=== PATIENT | male | born 1985 | race Caucasian/White ===

== ENCOUNTER 2017-09-12 17:33 | Emergency (ER) | payer OTHER ==
[~2017-09-12] VITALS: Ht 195.6 cm; Wt 145.0 kg
[2017-09-12 17:41] VITALS: PULSE 109; RESP 18; TEMP 97.6; O2SAT 95
[2017-09-12] MEDS ORDERED: PRAZ2CAP PO (17:52)
[2017-09-12] MEDS ORDERED: HYDR-3516 PO (17:52)
[2017-09-12] MEDS ORDERED: ZOFR4TAB PO (17:52)
[2017-09-12] MEDS ORDERED: CLON1TAB PO (17:52)
[2017-09-12] MEDS ORDERED: SODIUM CHLOR 0.9% 1000 ML INJ 1,000 ML IV ONE ×2 (18:01→19:15)
--- NOTE | 2017-09-12 18:14 | PD ---
HPI Chief Complaint: GI Complaint Time Seen by Provider: 17:48 Travel History International Travel<30 days: No Contact w/Intl Traveler<30days: No Traveled to known affect area: No History of Present Illness HPI Patient is a 32-year-old male presenting to the emergency department for evaluation of left flank and left back pain secondary to a kidney stone he was diagnosed with yesterday. Patient went to [facility] yesterday, he states he has a 5 mm kidney stone. He was discharged on Percocet, Zofran and Flomax. He states his pain is the same as it was yesterday, a 10 out of 10. He reports nausea and vomiting also consistent with yesterday's symptoms. Patient states he vomited the Zofran. He did not go back to [facility] because he was told this hospital is better. He reports one episode of hematuria this morning. Symptom onset was gradual, symptom severity is moderate. There are no alleviating factors, there are no exacerbating factors. Patient has a history of sleep apnea, PTSD, hypertension. PFSH Past Medical History Diminished Hearing: No Hypertension: Yes Kidney Stones: Yes Psychiatric: Yes (POST TRAUMATIC DISORDER) Sleep Apnea: Yes Tetanus Vaccination: < 5 Years Influenza Vaccination: Yes Past Surgical History Surgical History: No Previous Surgery Social History Alcohol Use: No Tobacco Use: Yes (1 pack per day) Substance Use: No Allergies-Medications (Allergen,Severity, Reaction): Coded Allergies: No Known Allergies (Unverified , 09/12/17) Reported Meds & Prescriptions Reported Meds & Active Scripts Active Reported Zofran (Ondansetron HCl) 4 Mg Tab 4 Mg PO Q6HR PRN Hydrocodone-Acetamin 5-325 mg (Hydrocodone/Acetaminophen) 5 Mg-325 Mg Tablet 1 PO Q4-6H Prazosin (Prazosin HCl) 2 Mg Cap 2 Mg PO BID Clonazepam 1 Mg Tab 1 Mg PO TID Review of Systems Except as stated in HPI: all other systems reviewed are Neg General / Constitutional: No: Fever HENT: No: Headaches Cardiovascular: No: Chest Pain or Discomfort Respiratory: No: Shortness of Breath Gastrointestinal: Positive: Nausea, Vomiting Genitourinary: Positive: Hematuria, Flank Pain Physical Exam Narrative GENERAL: Overweight, well-developed, alert male. Appears uncomfortable, in no acute distress. SKIN: Warm and dry. HEAD: Atraumatic. Normocephalic. EYES: Pupils equal and round. No scleral icterus. No injection or drainage. ENT: No nasal bleeding or discharge. Mucous membranes pink and moist. NECK: Trachea midline. No JVD. CARDIOVASCULAR: Regular rate and rhythm. RESPIRATORY: No accessory muscle use. Clear to auscultation. Breath sounds equal bilaterally. GASTROINTESTINAL: Abdomen soft, non-tender, nondistended. Hepatic and splenic margins not palpable. MUSCULOSKELETAL: Extremities without clubbing, cyanosis, or edema. No obvious deformities. +CVAT on the left. NEUROLOGICAL: Awake and alert. No obvious cranial nerve deficits. Motor grossly within normal limits. Five out of 5 muscle strength in the arms and legs. Normal speech. PSYCHIATRIC: Appropriate mood and affect; insight and judgment normal. Data Data Last Documented VS Vital Signs Date Time Temp Pulse Resp B/P (MAP) Pulse Ox O2 Delivery O2 Flow Rate FiO2 09/12/17 19:34 82 18 136/75 (95) 100 09/12/17 18:26 97.8 Orders Orders Complete Blood Count With Diff (09/12/17 18:01) Comprehensive Metabolic Panel (09/12/17 18:01) Urinalysis - C+S If Indicated (09/12/17 18:01) Ecg Monitoring (09/12/17 18:01) Iv Access Insert/Monitor (09/12/17 18:01) Ketorolac Inj (Toradol Inj) (09/12/17 18:15) Ondansetron Inj (Zofran Inj) (09/12/17 18:15) Sodium Chloride 0.9% Flush (Ns Flush) (09/12/17 18:15) Sodium Chlor 0.9% 1000 Ml Inj (Ns 1000 M (09/12/17 18:01) Us Kidney/Renal/Bladder (09/12/17 ) Sodium Chlor 0.9% 1000 Ml Inj (Ns 1000 M (09/12/17 19:15) Oxycodone-Acetamin 7.5-325 Mg (Percocet (09/12/17 19:15) Prochlorperazine Inj (Compazine Inj) (09/12/17 19:15) Ed Discharge Order (09/12/17 19:56) Labs Laboratory Tests Test 09/12/17 18:00 White Blood Count 12.8 TH/MM3 Red Blood Count 5.69 MIL/MM3 Hemoglobin 16.2 GM/DL Hematocrit 48.0 % Mean Corpuscular Volume 84.4 FL Mean Corpuscular Hemoglobin 28.5 PG Mean Corpuscular Hemoglobin Concent 33.8 % Red Cell Distribution Width 13.9 % Platelet Count 224 TH/MM3 Mean Platelet Volume 9.7 FL Neutrophils (%) (Auto) 78.5 % Lymphocytes (%) (Auto) 12.8 % Monocytes (%) (Auto) 7.7 % Eosinophils (%) (Auto) 0.6 % Basophils (%) (Auto) 0.4 % Neutrophils # (Auto) 10.1 TH/MM3 Lymphocytes # (Auto) 1.7 TH/MM3 Monocytes # (Auto) 1.0 TH/MM3 Eosinophils # (Auto) 0.1 TH/MM3 Basophils # (Auto) 0.1 TH/MM3 CBC Comment DIFF FINAL Differential Comment Blood Urea Nitrogen 12 MG/DL Creatinine 1.41 MG/DL Random Glucose 104 MG/DL Total Protein 7.3 GM/DL Albumin 3.9 GM/DL Calcium Level 8.8 MG/DL Alkaline Phosphatase 95 U/L Aspartate Amino Transf (AST/SGOT) 24 U/L Alanine Aminotransferase (ALT/SGPT) 74 U/L Total Bilirubin 0.7 MG/DL Sodium Level 141 MEQ/L Potassium Level 4.1 MEQ/L Chloride Level 110 MEQ/L Carbon Dioxide Level 21.4 MEQ/L Anion Gap 10 MEQ/L Estimat Glomerular Filtration Rate 59 ML/MIN MDM Medical Decision Making Medical Screen Exam Complete: Yes Emergency Medical Condition: Yes Interpretation(s) Vital Signs Date Time Temp Pulse Resp B/P (MAP) Pulse Ox O2 Delivery O2 Flow Rate FiO2 09/12/17 17:45 20 09/12/17 17:41 97.6 109 18 95 Differential Diagnosis UTI versus kidney stone versus obstructive uropathy versus other Narrative Course Patient is a 32-year-old male presenting for evaluation of left flank and back pain. Labs, IV fluids, ultrasound ordered and pending. Patient will be given Toradol for pain. Renal ultrasound shows no evidence of hydronephrosis on either side. Right kidney with no acute abnormalities. The left kidney there is no hydronephrosis , stone or mass. There is a 5 mm area of hypoechogenicity in the midpole collecting system which does not demonstrate acoustic shadowing cannot further be characterized. Bladder is within normal limits, there is no evidence of hydronephrosis bilaterally. Patient was reassessed, he continued to complain of pain. He will be given Percocet, an additional liter of IV fluids. CBC with a white blood cell count of 12.8 with slight left shift. Chemistry with a creatinine of 1.41. Patient has not given a urine sample. He started to become belligerent and aggressive. He was throwing things around the hospital room. He stated that if we were going to do anything for him that he would just go home. He able to ambulate without difficulty and was moving freely around the room. He ripped off his ID band and threw it across the room. He threw a urine cup across the room. He then left the emergency department without receiving his paperwork. He was verbally informed on what to do upon discharge. Diagnosis Primary Impression: Kidney stone Referrals: Urologist 2 days Patient Instructions: General Instructions, Kidney Stones (ED), Narcotic given in the ED Additional Instructions: Follow up with your primary doctor Follow up with urology Continue medications as previously prescribed yesterday Increase fluid intake Return to the Emergency Department for any new or worsening symptoms Med/Other Pt SpecificInfo: Prescription(s) given, No Change to Meds Disposition: 01 DISCHARGE HOME Condition: Stable Sofi Pickett Sep 12, 2017 18:14
[2017-09-12] MEDS ORDERED: ONDANSETRON HCL 4 MG/2 ML VIAL IV PUSH ONE (18:15)
[2017-09-12] MEDS ORDERED: SODIUM CHLORIDE 0.9% FLUSH 10 ML FLUSH IVF PRN (18:15)
[2017-09-12] MEDS ORDERED: KETOROLAC TROMETHAMINE 30 MG/ML (IVP) VIAL IV PUSH ONE (18:15)
[2017-09-12 18:26] VITALS: BP 140/76; PULSE 98; RESP 20; TEMP 97.8; O2SAT 99
--- NOTE | 2017-09-12 18:51 | PD ---
Physical Exam Date Seen by Provider: Sep 12, 2017 Narrative This patient presents for a second opinion regarding a kidney stone. He was seen yesterday at [facility] and diagnosed with a 5 mm stone. He was discharged on Percocet, Zofran and Flomax. He presents to us today stating that his pain is not controlled with this regimen. Data Data Last Documented VS Vital Signs Date Time Temp Pulse Resp B/P (MAP) Pulse Ox O2 Delivery O2 Flow Rate FiO2 09/12/17 18:26 97.8 98 20 140/76 (97) 99 Orders Orders Complete Blood Count With Diff (09/12/17 18:01) Comprehensive Metabolic Panel (09/12/17 18:) Urinalysis - C+S If Indicated (09/12/17 18:) Ecg Monitoring (09/12/17 18:) Iv Access Insert/Monitor (09/12/17 18:) Ketorolac Inj (Toradol Inj) (09/12/17 18:15) Ondansetron Inj (Zofran Inj) (09/12/17 18:15) Sodium Chloride 0.9% Flush (Ns Flush) (09/12/17 18:15) Sodium Chlor 0.9% 1000 Ml Inj (Ns 1000 M (09/12/17 18:01) Us Kidney/Renal/Bladder (09/12/17 ) MDM Supervised Visit with ZACHERY: Yes Narrative Course I, Dr. Dacosta, have reviewed the advance practice practitioner's documentation and am in agreement, met with the patient face to face, made the diagnosis, and the medical decision making was done by me. *My assessment and Findings: Patient is awake alert and does not appear to be in any acute distress. He was actually undergoing an ultrasound when I went in to see him. Please see Sofi Lombardo NP's note for results of laboratory and radiographic evaluation, ED course, final diagnosis and disposition. Her plan is to do an ultrasound to evaluate for hydronephrosis and then treat accordingly. The patient already had a CT yesterday at an outside hospital. He will not be radiated here again tonight. Kelsi Dacosta MD Sep 12, 2017 18:51
[2017-09-12 18:58] LABS: AUTOMATED NEUTROPHIL # 10.1 TH/MM3 (1.8-7.7); BASOPHIL # 0.1 TH/MM3 (0-0.2); BASOPHIL % 0.4 % (0.0-2.0); EOSINOPHIL # 0.1 TH/MM3 (0-0.4); EOSINOPHIL % 0.6 % (0.0-4.0); HEMOGLOBIN 16.2 GM/DL (13.0-17.0); LYMPH % 12.8 % (9.0-44.0); LYMPHOCYTE # 1.7 TH/MM3 (1.0-4.8); MEAN CELL VOLUME 84.4 FL (80.0-100.0); MEAN CORPUSCULAR HEMOGLOBIN 28.5 PG (27.0-34.0); MEAN CORPUSCULAR HGB CONC 33.8 % (32.0-36.0); MEAN PLATELET VOLUME 9.7 FL (7.0-11.0); MONO % 7.7 % (0.0-8.0); NEUT % 78.5 % (16.0-70.0); PLATELET COUNT 224 TH/MM3 (150-450); RED BLOOD COUNT 5.69 MIL/MM3 (4.50-5.90); RED CELL DISTRIBUTION WIDTH 13.9 % (11.6-17.2); WHITE BLOOD COUNT 12.8 TH/MM3 (4.0-11.0)
--- NOTE | 2017-09-12 18:58 | RADRPT ---
EXAM DATE/TIME: 09/12/2017 18:35 [facility] COMPARISON: No previous studies available for comparison. INDICATIONS : Flank pain. MEDICAL HISTORY : Hypertension. Glasses. Sleep apnea. Kidney stones. PTSD. SURGICAL HISTORY : None. ENCOUNTER: Initial ACUITY: 4-6 days PAIN SCORE: 10/10 LOCATION: Bilateral flank MEASUREMENTS: RIGHT KIDNEY: 14.3 x 5.0 x 6.4 cm LEFT KIDNEY: 15.1 x 4.9 x 6.6 cm FINDINGS: RIGHT KIDNEY: Renal cortex is normal in thickness and echotexture. No hydronephrosis, stone, or mass. LEFT KIDNEY: Renal cortex is normal in thickness and echotexture. No hydronephrosis, stone, or mass. There is a 5 mm area of hyperechogenicity in the midpole collecting system which does not demonstrate acoustic s hadowing cannot be further characterized. BLADDER: Within normal limits given the degree of distension. CONCLUSION: No evidence of hydronephrosis on either side. Thiago Beck MD on September 12, 2017 at 18:55 Board Certified Radiologist. This report was verified electronically.
[2017-09-12] MEDS ORDERED: oxyCODONE/ACETAMINOPHEN 7.5 MG/325 MG TAB PO ONE (19:15)
[2017-09-12] MEDS ORDERED: PROCHLORPERAZINE INJ 10 MG/2 ML VIAL IV PUSH ONE (19:15)
[2017-09-12 19:21] LABS: ALBUMIN 3.9 GM/DL (3.4-5.0); ALT (GPT) 74 U/L (12-78); AST (GOT) 24 U/L (15-37); BICARBONATE 21.4 MEQ/L (21.0-32.0); BLOOD UREA NITROGEN 12 MG/DL (7-18); CALCIUM 8.8 MG/DL (8.5-10.1); CHLORIDE 110 MEQ/L (98-107); CREATININE 1.41 MG/DL (0.60-1.30); GLOMERULAR FILTRATION RATE 59 ML/MIN (>89); GLUCOSE,RANDOM 104 MG/DL (74-106); SODIUM (NA) 141 MEQ/L (136-145)
[2017-09-12 19:23] LABS: ALKALINE PHOSPHATASE 95 U/L (45-117); TOTAL BILIRUBIN ADULT 0.7 MG/DL (0.2-1.0); TOTAL PROTEIN 7.3 GM/DL (6.4-8.2)
[2017-09-12 19:34] VITALS: BP 136/75; PULSE 82; RESP 18; O2SAT 100
== END 2017-09-12 20:05 | disposition home or self-care (01) ==
LOC: NEPC 17:33
DX: N20.0 Calculus of kidney (principal); I10 Essential (primary) hypertension; F43.10 Post-traumatic stress disorder, unspecified; F17.210 Nicotine dependence, cigarettes, uncomplicated; Z87.442 Personal history of urinary calculi; Z79.899 Other long term (current) drug therapy
CPT/HCPCS: 76775; 80053; 85025; 96361; 96374; 96375; 99284; J0780; J1885; J2405; J7030